=== PATIENT | female | born 1990 | race Caucasian/White ===

== ENCOUNTER 2019-01-11 13:02 | Inpatient (IN) | payer OTHER ==
[2019-01-11] MEDS ORDERED: LACTATED RINGER'S 1,000 ML IV (14:07)
[2019-01-11] MEDS ORDERED: OXYTOCIN 30 UNITS/LR 500 ML IV ×3 (14:30→20:00)
[2019-01-11] MEDS ORDERED: METHYLERGONOVINE 0.2 MG INJ IM ×2 (14:30→20:00)
[2019-01-11] MEDS ORDERED: MISOPROSTOL 200 MCG TAB PR ×2 (14:30→20:00)
[2019-01-11] MEDS ORDERED: CARBOPROST 250 MCG INJ IM ×2 (14:30→20:00)
[2019-01-11 14:59] LABS: ADD MAN DIFF? NO
[2019-01-11 15:05] LABS: WHITE BLOOD COUNT 9.5 10^3/ul (4.8-10.8)
[2019-01-11 15:05] LABS: BASOPHILS % 0.3 % (0.0-2.0); EOSINOPHILS # 0.1 10^3/ul (0.0-0.5); EOSINOPHILS % 0.6 % (0.0-7.0); HEMATOCRIT 35.6 % (37.0-47.0); HEMOGLOBIN 11.7 g/dl (12.0-16.0); LYMPHOCYTES # 1.6 10^3/ul (0.8-2.9); MEAN CORPUSCULAR HEMOGLOBIN 27.5 pg (29.0-33.0); MEAN CORPUSCULAR HGB CONC 32.9 g/dl (32.0-37.0); MEAN CORPUSCULAR VOLUME 83.6 fl (82.0-101.0); MEAN PLATELET VOLUME 8.6 fl (7.4-10.4); MONOCYTE # 0.8 10^3/ul (0.3-0.9); MONOCYTES % 8.2 % (0.0-11.0); NEUTROPHIL # 6.9 10^3/ul (1.6-7.5); NEUTROPHILS % 72.8 % (39.0-77.0); PLATELET COUNT 328 10^3/UL (140-415); RED BLOOD COUNT 4.26 10^6/ul (4.20-5.40); RED CELL DISTRIBUTION WIDTH 13.2 % (11.5-14.5)
[2019-01-11 15:25] LABS: PARTIAL THROMBOPLASTIN TIME 29.4 Sec (23.0-35.0); PROTIME 12.3 Sec (11.9-14.9)
[2019-01-11] MEDS ORDERED: DEXAMETHASONE 4 MG/ML 1 ML INJ (15:47)
[2019-01-11] MEDS ORDERED: ONDANSETRON 4 MG INJ (15:47)
[2019-01-11] MEDS ORDERED: EPHEDrine 25 MG/5 ML SYG (15:47)
[2019-01-11] MEDS ORDERED: EPINEPHrine 0.1 MG/ML SYG (15:49)
[2019-01-11 16:09] LABS: HEPATITIS B SURFACE ANTIGEN NEGATIVE (NEGATIVE)
[2019-01-11] MEDS ORDERED: morphine SULFATE/PF (10 MG/10 ML) INJ (16:32)
[2019-01-11] MEDS ORDERED: NALOXONE (0.4 MG/ML) INJ IV (17:00)
[2019-01-11] MEDS ORDERED: DIPHENHYDRAMINE 50 MG INJ IV (17:00)
[2019-01-11] MEDS ORDERED: ZOLPIDEM 5 MG TAB PO (17:00)
[2019-01-11] MEDS ORDERED: HYDROmorphONE 0.5 MG/0.5 ML SYG IV ×2 (17:00)
[2019-01-11] MEDS ORDERED: ONDANSETRON 4 MG INJ IV (17:00)
[2019-01-11] MEDS: KETOROLAC 30 MG INJ IV (18:28)
[2019-01-11] MEDS: ACETAMINOPHEN 500 MG TAB PO (18:39)
[2019-01-11] MEDS: AZITHROMYCIN 500MG/NS (PMX) 250 ML IVPB (18:39)
[2019-01-11 19:25] LABS: RAPID PLASMA REAGIN NONREACTIVE (NR)
[2019-01-11] MEDS: CEFAZOLIN 2 GM/50 ML (PMX) 50 ML IVPB ×2 (19:31→21:13)
[2019-01-11] MEDS: LACTATED RINGER'S 1,000 ML IV (19:59)
[2019-01-11] MEDS ORDERED: NA PHOSPHATE/BIPHOS 133 ML ENEMA PR (20:00)
[2019-01-11] MEDS: LANOLIN HPA 1 PKT TOP (21:13)
[2019-01-11] MEDS: SENNA/DOCUSATE NA (8.6MG/50MG) TAB PO (21:16)
[2019-01-11] MEDS: OXYTOCIN 30 UNITS/LR 500 ML IV (21:16)
[2019-01-11] MEDS: IBUPROFEN 800 MG TAB PO (22:00)
[2019-01-12] MEDS: CLINDAMYCIN 300 MG CAP PO ×5 (00:45→23:42)
[2019-01-12] MEDS: LACTATED RINGER'S 1,000 ML IV ×3 (02:48→18:45)
[2019-01-12] MEDS: CEFAZOLIN 2 GM/50 ML (PMX) 50 ML IVPB ×2 (04:16→11:42)
[2019-01-12] MEDS: KETOROLAC 30 MG INJ IV ×2 (04:16→12:36)
[2019-01-12] MEDS: IBUPROFEN 800 MG TAB PO ×3 (06:00→22:11)
[2019-01-12 07:15] LABS: ADD MAN DIFF? NO
[2019-01-12 07:22] LABS: BASOPHILS % 0.1 % (0.0-2.0); HEMOGLOBIN 9.6 g/dl (12.0-16.0); LYMPHOCYTES # 1.4 10^3/ul (0.8-2.9); LYMPHOCYTES % 9.1 % (15.0-51.0); MEAN CORPUSCULAR HGB CONC 33.1 g/dl (32.0-37.0); MEAN CORPUSCULAR VOLUME 84.5 fl (82.0-101.0); MEAN PLATELET VOLUME 8.7 fl (7.4-10.4); MONOCYTE # 1.1 10^3/ul (0.3-0.9); MONOCYTES % 7.7 % (0.0-11.0); NEUTROPHIL # 12.3 10^3/ul (1.6-7.5); NEUTROPHILS % 82.3 % (39.0-77.0); PLATELET COUNT 291 10^3/UL (140-415); RED BLOOD COUNT 3.43 10^6/ul (4.20-5.40); RED CELL DISTRIBUTION WIDTH 13.2 % (11.5-14.5)
[2019-01-12 07:22] LABS: WHITE BLOOD COUNT 14.9 10^3/ul (4.8-10.8)
[2019-01-12] MEDS: SENNA/DOCUSATE NA (8.6MG/50MG) TAB PO ×2 (09:00→22:10)
[2019-01-12] MEDS: BISACODYL 10 MG SUPP PR (15:39)
[2019-01-12] MEDS: OXYCODONE/ACETAMINOPHEN (5/325) TAB PO (18:59)
[2019-01-13] MEDS: CLINDAMYCIN 300 MG CAP PO ×3 (05:37→18:11)
[2019-01-13] MEDS: IBUPROFEN 800 MG TAB PO ×3 (05:37→21:31)
[2019-01-13 07:04] LABS: ADD MAN DIFF? NO
[2019-01-13 07:09] LABS: BASOPHIL # 0.1 10^3/ul (0.0-0.1); BASOPHILS % 0.4 % (0.0-2.0); EOSINOPHILS # 0.2 10^3/ul (0.0-0.5); EOSINOPHILS % 1.2 % (0.0-7.0); HEMATOCRIT 30.1 % (37.0-47.0); LYMPHOCYTES # 2.3 10^3/ul (0.8-2.9); LYMPHOCYTES % 16.2 % (15.0-51.0); MEAN CORPUSCULAR HEMOGLOBIN 27.9 pg (29.0-33.0); MEAN CORPUSCULAR HGB CONC 33.2 g/dl (32.0-37.0); MEAN CORPUSCULAR VOLUME 84.1 fl (82.0-101.0); MEAN PLATELET VOLUME 8.2 fl (7.4-10.4); MONOCYTES % 7.2 % (0.0-11.0); NEUTROPHIL # 10.6 10^3/ul (1.6-7.5); PLATELET COUNT 319 10^3/UL (140-415); RED BLOOD COUNT 3.58 10^6/ul (4.20-5.40); RED CELL DISTRIBUTION WIDTH 13.2 % (11.5-14.5)
[2019-01-13 07:09] LABS: WHITE BLOOD COUNT 14.3 10^3/ul (4.8-10.8)
[2019-01-13] MEDS: SENNA/DOCUSATE NA (8.6MG/50MG) TAB PO ×2 (09:14→21:00)
[2019-01-13] MEDS ORDERED: ACETAMINOPHEN 325 MG TAB PO (13:30)
[2019-01-14] MEDS: CLINDAMYCIN 300 MG CAP PO ×3 (00:33→12:00)
[2019-01-14] MEDS: IBUPROFEN 800 MG TAB PO (05:39)
[2019-01-14] MEDS: MEASLES,MUMPS,RUBELLA VACCINE INJ SC* (07:39)
[2019-01-14] MEDS: DIPHTH/TET/ACEL PERTUSS (ADULT) 0.5 ML VIAL IM* (07:39)
[2019-01-14 08:04] LABS: ADD MAN DIFF? NO
[2019-01-14 08:11] LABS: WHITE BLOOD COUNT 11.5 10^3/ul (4.8-10.8)
[2019-01-14 08:11] LABS: BASOPHIL # 0.1 10^3/ul (0.0-0.1); BASOPHILS % 0.7 % (0.0-2.0); EOSINOPHILS # 0.2 10^3/ul (0.0-0.5); EOSINOPHILS % 1.7 % (0.0-7.0); HEMOGLOBIN 9.9 g/dl (12.0-16.0); LYMPHOCYTES % 17.3 % (15.0-51.0); MEAN CORPUSCULAR VOLUME 84.7 fl (82.0-101.0); MEAN PLATELET VOLUME 8.7 fl (7.4-10.4); MONOCYTE # 0.8 10^3/ul (0.3-0.9); MONOCYTES % 7.1 % (0.0-11.0); NEUTROPHIL # 8.3 10^3/ul (1.6-7.5); NEUTROPHILS % 72.2 % (39.0-77.0); PLATELET COUNT 339 10^3/UL (140-415); RED BLOOD COUNT 3.54 10^6/ul (4.20-5.40); RED CELL DISTRIBUTION WIDTH 13.3 % (11.5-14.5)
[2019-01-14] MEDS: SENNA/DOCUSATE NA (8.6MG/50MG) TAB PO (09:00)
[2019-01-14] MEDS: HYDROCODONE/APAP (5/325) TAB PO (09:17)
== END 2019-01-14 13:59 | disposition home or self-care (01) | DRG 785 ==
LOC: L-D 13:02 → PP1 19:05
PROVIDERS: Obstetrics & Gynecology
PROC: 10D00Z1 Extraction of Products of Conception, Low, Open Approach (ICD-10-PCS; principal; 2019-01-11 15:30)
PROC: 0UB70ZZ Excision of Bilateral Fallopian Tubes, Open Approach (ICD-10-PCS; 2019-01-11 15:30)
DX: O34.211 Maternal care for low transverse scar from previous cesarean delivery (principal); O99.214 Obesity complicating childbirth; E66.9 Obesity, unspecified; Z3A.39 39 weeks gestation of pregnancy; Z37.0 Single live birth; Z30.2 Encounter for sterilization
CPT/HCPCS: 85025; 85610; 85730; 86592; 86850; 86900; 86901; 87340; 88302; 99464